=== PATIENT | female | born 1985 | race Caucasian/White ===

== ENCOUNTER 2017-04-14 21:37 | Emergency (ER) | payer OTHER ==
[~2017-04-14] VITALS: Ht 162.6 cm; Wt 70.3 kg
--- NOTE | 2017-04-14 22:47 | NUR ---
Dr. Soto at bedside for MSE
[2017-04-14] MEDS ORDERED: diphenhydrAMINE 50 MG/1 ML VIAL IM ONE (23:15)
[2017-04-14] MEDS ORDERED: HYDROMORPHONE 1 MG/1 ML DISP.SYRIN IM ONE (23:15)
--- NOTE | 2017-04-14 23:20 | NUR ---
Pt medicated for discomfort, will monitor for effects of medication. U/S at bedside.
[2017-04-14] MEDS ORDERED: diphenhydrAMINE 50 MG/1 ML VIAL ONE (23:33)
[2017-04-14] MEDS ORDERED: HYDROMORPHONE 1 MG/1 ML DISP.SYRIN ONE (23:33)
--- NOTE | 2017-04-15 00:20 | NUR ---
Note rey in EDM - 04/15/17 at 0326 by GERI Pt medicated for discomfort, will monitor for effects of medications. Knee immobilizer applied. Pos CMS s/p application.
--- NOTE | 2017-04-15 00:55 | NUR ---
Pt resting in position of comfort for self. Pt sts pain improved with medication. Pt awaiting re-evaluation and disposition.
--- NOTE | 2017-04-15 01:20 | NUR ---
Pt medicated for discomfort, will monitor for effects of medications. Knee immobilizer applied. Pos CMS s/p application.
[2017-04-15] MEDS ORDERED: diphenhydrAMINE 50 MG/1 ML VIAL ONE (01:26)
[2017-04-15] MEDS ORDERED: HYDROMORPHONE 1 MG/1 ML DISP.SYRIN ONE (01:26)
[2017-04-15] MEDS ORDERED: diphenhydrAMINE 50 MG/1 ML VIAL IM ONE (01:30)
[2017-04-15] MEDS ORDERED: HYDROMORPHONE 1 MG/1 ML DISP.SYRIN IM ONE (01:30)
--- NOTE | 2017-04-15 01:35 | NUR ---
Pt sts pain is improving with the medications. Pt stable for discharge per Dr. Soto. Pt given ACI. Pt verbalized understanding of dc instructions. 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
[2017-04-15 03:33] VITALS: BP 128/80
== END 2017-04-15 01:35 | disposition home or self-care (01) ==
LOC: ER 21:38
DX: M23.92 Unspecified internal derangement of left knee (principal); Z88.2 Allergy status to sulfonamides
CPT/HCPCS: 29505; 73560; 93971; 96372 ×4; 99284; A4663; J1170 ×2; J1200 ×2